=== PATIENT | female | born 1985 | race Caucasian/White ===

== ENCOUNTER 2018-10-26 07:19 | Inpatient (IN) ==
--- NOTE | 2018-10-26 07:50 | PROVIDER DOCUMENTATION ---
HPI-General Adult - General Chief Complaint: Extremity Pain Stated Complaint: LEFT LEG,HIP,FOOT PAIN,SEEING THINGS Time Seen by Provider: 10/26/18 07:31 Allergies/Adverse Reactions: Patient Allergies Allergy/AdvReac Type Severity Reaction Status Date / Time adhesive tape Allergy RASH Verified 03/13/18 21:19 Home Medications: Home Medication List Medication Instructions Recorded Confirmed Last Taken Type Albuterol Sulfate Inhaler 2 puff INH [id number] 04/05/12 10/26/18 11/11/17 History [Ventolin Hfa] Hydrochlorothiazide 12.5 mg PO DAILY 03/13/18 10/26/18 Unknown History Lisinopril 5 mg PO DAILY 03/13/18 10/26/18 Unknown History Citalopram Hydrobromide [Celexa] 1 tab PO DAILY 10/26/18 10/26/18 10/25/18 History Gabapentin 300 mg PO TID 10/26/18 10/26/18 Unknown History - History of Present Illness -Gen Adult Nature of Presenting Problems: 32 y/o WF c/o lt lateral hip pain since 330 this am. She states that she got up this am and noticed her hip was hurting but denies any injuries and was fine when she went to bed. Pt also notes headache and seeing a green ball "coming at her" and adds her chest is hurting. Pt denies any substance abuse but does admit to starting celexa last night. Location of Pain/Injury: reports: head (headache), chest (chest pain), lower extremity (lt hip pain) Pain Radiation: reports: feet (Pt notes that her lt hip pain radiates to lt foot but has no point tenderness.) Quality of Pain: reports: aching Severity: reports: mild Onset/Duration: reports: 4-6 hours ago Timing: reports: still present Context/Activities at Onset: reports: rest Modifying Factors: improves with: movement Associated Symptoms: reports: anxiety Similar Symptoms Previously?: No Recently seen or treated by another doctor?: No - Sickle Cell Pain Related Context Sickle Cell Pain Location: reports: none Is this pain typical of prior episodes of crisis?: No Review of Systems - Adult - REVIEW OF SYSTEMS - ADULT Constitutional: reports: see HPI Eyes: reports: no symptoms reported, see HPI Ears, Nose, Mouth & Throat: reports: no symptoms reported, see HPI Cardiovascular: reports: chest pain Respiratory: reports: no symptoms reported, see HPI Gastrointestinal: reports: no symptoms reported, see HPI Genitourinary: reports: no symptoms reported, see HPI Musculoskeletal: reports: see HPI, joint pain (lt hip pain) Integumentary: reports: no symptoms reported, see HPI Neurological: reports: headache/migraines, other (seeing green ball) Psychiatric: reports: see HPI, anxiety Endocrine: reports: no symptoms reported, see HPI Hematologic/Lymphatic: reports: no symptoms reported, see HPI Allergic/Immunologic: reports: no symptoms reported, see HPI All Other Systems: Reviewed and Negative Past History - Adult - PAST MEDICAL HISTORY-ADULT Review of Records: reports: Nursing Assessment Review, Medications Reviewed, Social history reviewed & non-contributory. Major Childhood Illnesses: reports: history unknown Cardiovascular: reports: HTN Respiratory: reports: asthma, COPD Gastrointestinal: reports: denies history Obstetrical/Gynecological: reports: denies history Genitourinary: reports: denies history Musculoskeletal: reports: chronic pain (back) Neurological: reports: denies history Psychiatric: reports: denies history Endocrine/Immune: reports: Diabetes Other Conditions: reports: denies history - PRIOR SURGERIES/PROCEDURES Surgical/Procedure History: reports: none - PRIOR HOSPITALIZATIONS Prior Hospitalizations: reports: none - IMMUNIZATION STATUS Childhood Immunizations: See Nurse Assessment Flu Vaccine: See Nurse Assessment - FAMILY HISTORY Family History: reviewed, not pertinent Physical Exam-General - PHYSICAL EXAM-ADULT Initial Vital Signs Reviewed: Yes - CONSTITUTIONAL General Appearance: alert, mild distress - EYES Eyes: PERRL/EOMI - HEAD, EARS, NOSE, MOUTH & THROAT HENMT: normocephalic/atraumatic, moist mucous membranes, normal ENT inspection - NECK Neck: non-tender, full range of motion, supple, normal inspection - RESPIRATORY Respiratory: chest non-tender, lungs clear, normal breath sounds, no pleuratic chest pain, no respiratory distress, no accessory muscle use - CARDIOVASCULAR Cardiovascular: normal peripheral pulses, regular rate, rhythm, no edema, no gallop, no JVD, no murmur - GASTROINTESTINAL (ABDOMEN) Abdominal Exam: normal bowel sounds, non tender, soft, no organomegaly, no pulsatile mass - LYMPHATIC Lymphatic: no adenopathy - MUSCULOSKELETAL Back Exam: no CVA tenderness, no vertebral tenderness Extremity: normal range of motion, no pedal edema, no calf tenderness, normal capillary refill, tenderness (to lt lateral hip. No tenderness with palpation or movement to lt lower leg.) Peripheral Pulses: dorsalis-pedis (R): 4+, dorsalis-pedis (L): 4+ - SKIN Integumentary: normal color, normal turgor - NEUROLOGIC Neurologic: party host II-XII nml as tested, grossly normal, no motor/sensory deficits - PSYCHIATRIC Psych/Mental Status: normal thought content, normal thought process, oriented x 3, anxious, tearful Progress - PLAN OF CARE/RESULTS Progress/Plan/Lab Results: Vital Signs - 8 hr 10/26/18 07:21 Temperature 98.2 F Pulse Rate 98 H Respiratory Rate 16 Blood Pressure 134/104 O2 Sat by Pulse Oximetry 98 Orders Category Date Time Status CT HEAD W/O CONTRAST [CT] Stat Exams 10/26/18 07:39 Ordered XRAY PELVIS W/HIP 2-3VW LT [RAD] Stat Exams 10/26/18 07:39 Ordered cxr [CHEST-1 VIEW] [RAD] Stat Exams 10/26/18 07:41 Ordered CBC WITH ELECTRONIC DIFF [HEME] Stat Lab 10/26/18 07:41 Uncollected COMPREHENSIVE METABOLIC PANEL [CHEM] Stat Lab 10/26/18 07:41 Uncollected TEST-URINE [PREG] Stat Lab 10/26/18 07:39 Uncollected TROPONIN T Stat Lab 10/26/18 07:41 Uncollected URINALYSIS [URINALYSIS] Stat Lab 10/26/18 07:41 Uncollected URINE DRUG SCREEN Stat Lab 10/26/18 07:43 Uncollected EKG [EKG] Stat Ther 10/26/18 07:41 Ordered discussed with PA for Dr Mo who agreed to admit and will see in ER. Result Diagrams: 10/26/18 08:19 10/26/18 08:19 Departure - Departure Date of Disposition Decision: 10/26/18 Time of Disposition Decision: 10:59 DIAGNOSIS: Altered mental status, Substance abuse, Chest pain Disposition: ADMITTED INPATIENT 09 Certified Medical Emergency: Emergent Condition: Fair Referrals and Follow-Ups: Maura Zambrano CRNP [Primary Care Provider] - - Critical Care Note This patient required my direct & personal management of CC.: Yes Total Time (mins): 35 Critical Care Statement: This patient required my direct personal management to treat or rule out processes, the absence of which, could potentiallly result in sudden, clinically significant life or limb threatening deterioration. Attestation - Physician/ MICHAEL Attestation Patient care was provided by Advanced Practice Provider:: No The physician spent face to face time with patient:: Yes Advanced Practice Provider documentation review:: Supervising physician onsite and consulted in the evaluation and care of this patient. The physician did have a face to face encounter with the patient.
--- NOTE | 2018-10-26 08:10 | EKG Report ---
Test Performed on : 10/26/2018 08:01:54 AM Test Reason : chest pain Blood Pressure : / mmHG Vent. Rate : 092 BPM Atrial Rate : 092 BPM P-R Int : 080 ms QRS Dur : 098 ms QT Int : 400 ms P-R-T Axes : 019 018 263 degrees QTc Int : 494 ms Sinus rhythm. with short WI ST & T wave abnormality, consider inferior ischemia ST & T wave abnormality, consider anterior ischemia Abnormal ECG When compared with ECG of 30-AUG-2018 10:17, WI interval has decreased Nonspecific T wave abnormality has replaced inverted T waves in Lateral leads Unconfirmed Result
[2018-10-26 08:40] LABS: BASO# 0.02 X1000 (0.0-0.2); BASO% 0.2 % (0.0-0.8); EOS# 0.07 X1000 (0.0-0.7); EOS% 0.7 % (0.0-10.0); HEMATOCRIT 42.2 % (37.0-47.0); HEMOGLOBIN 13.8 g/dL (12.0-16.0); IMM GRAN# 0.02 X1000 (0.0-0.04); IMM GRAN% 0.2 % (0.0-0.5); LYMPH# 2.91 X1000 (1.2-3.4); LYMPH% 30.8 % (20.5-51.1); MCH 27.4 PG (27-31); MCHC 32.7 g/dL (33-37); MCV 83.7 FL (81-99); MONO# 0.51 X1000 (0.11-0.59); MONO% 5.4 % (1.7-9.3); MPV 9.5 FL (7.4-10.4); NEUT# 5.93 X1000 (1.4-6.5); NEUT% 62.7 % (42.2-75.2); PLT 346 X1000 (130-400); RBC 5.04 XMIL (4.2-5.4); RDW 14.3 % (11.5-14.5); WBC 9.46 X1000 (4.8-10.8)
[2018-10-26 08:53] LABS: AGAP 13; ALB/GLOB RATIO 1.2; ALBUMIN 4.1 g/dL (3.5-5.0); ALKALINE PHOSPHATASE 84 U/L (32-104); BUN 7 mg/dL (8-22); CALCIUM 9.5 mg/dL (8.8-10.2); CHLORIDE 101 mmol/L (98-107); COSMO 276; CREATININE 0.9 mg/dL (0.5-0.9); ESTIMATED GFR > 60; GLUCOSE 80 mg/dL (70-104); GOT 16 U/L (10-30); GPT 13 U/L (10-36); POTASSIUM 3.4 mmol/L (3.5-5.1); SODIUM 140 mmol/L (136-145); TCO2 26 mmol/L (25-35); TOTAL BILIRUBIN 0.39 mg/dL (0.20-1.00); TOTAL PROTEIN 7.4 g/dL (6.3-8.3)
[2018-10-26] MEDS ORDERED: ATIVAN IV ONE (09:17)
[2018-10-26 09:36] LABS: URINE SOURCE CLEAN CATCH
[2018-10-26 09:41] LABS: UR EPITHELIAL CELLS <10 /HPF (<10); URINE BACTERIA 1+ /HPF; URINE RBC <10 /HPF (<10); URINE WBC <10 /HPF (<10)
[2018-10-26 09:42] LABS: BILIRUBIN URINE NEGATIVE (NEGATIVE); BLOOD URINE NEGATIVE (NEGATIVE); COLOR YELLOW; GLUCOSE URINE NEGATIVE (NEGATIVE); KETONE URINE 10 mg/dL (NEGATIVE); LEUKOCYTES URINE NEGATIVE (NEGATIVE); NITRITE URINE NEGATIVE (NEGATIVE); PH URINE 6.5; PROTEIN URINE TRACE mg/dL (NEGATIVE); SP GRAVITY URINE 1.014; TURBIDITY URINE CLEAR (CLEAR); UROBILINOGEN URINE NORMAL (NORMAL)
[2018-10-26 10:05] LABS: UR AMPHETAMINES QUAL PRESUMPTIVE POSITIVE (NONE DETECT); UR BARBITUATES QUAL NONE DETECTED (NONE DETECT); UR BENZODIAZEPIN QUAL NONE DETECTED (NONE DETECT); UR CANNABINOIDS QUAL NONE DETECTED (NONE DETECT); UR COCAINE QUAL NONE DETECTED (NONE DETECT); UR METHADONE QUAL NONE DETECTED (NONE DETECT); UR OPIATES QUAL NONE DETECTED (NONE DETECT); UR OXYCODONE QUAL NONE DETECTED (NONE DETECT); UR PCP QUAL NONE DETECTED (NONE DETECT)
--- NOTE | 2018-10-26 10:15 | ED EKG INTERP ---
This chart was entered by Mindy Worrell Scribe, acting as scribe for Parminder Vera MD. EKG Interpretation - EKG Time of EKG reading by physician:: 08:01 EKG Read and Signed by:: Parminder Vera EKG Interpretation (*Must complete 3 of following elements*): Abnormal Rate: 92 Rhythm: sinus rhythm with short pr [place]: normal QRS: normal WI Interval: normal Comments: st and T wave abnormality, consider inferior or anterior ischemia Attestation - Physician/ MICHAEL Attestation Patient care was provided by Advanced Practice Provider:: No The physician spent face to face time with patient:: Yes Advanced Practice Provider documentation review:: Supervising physician onsite and consulted in the evaluation and care of this patient. The physician did have a face to face encounter with the patient. This chart was documented by the indicated scribe, (Mindy Worrell Scribe) and accurately reflects the services I performed and decisions made by me, Parminder Vera MD, as attested by the provider's signature.
--- NOTE | 2018-10-26 10:33 | Diag Imaging Result Doc PS360 ---
EXAM: CHEST-1 VIEW HISTORY: chest pain TECHNIQUE: Chest single view COMPARISON: 08/30/2018 FINDINGS: The lungs are well expanded. The heart is not enlarged. The vessels are not distended. There are no infiltrates. No effusion identified. Mild scoliosis. IMPRESSION: No acute abnormality. Electronically signed by Andrew Martínez 10/26/2018 10:31 AM
--- NOTE | 2018-10-26 10:36 | Diag Imaging Result Doc PS360 ---
EXAM: XRAY PELVIS W/HIP 2-3VW LT HISTORY: fall, injury TECHNIQUE: Pelvis and left hip, three views COMPARISON: None. FINDINGS: No fracture. No dislocation. IMPRESSION: No acute bony injury. Electronically signed by Andrew Martínez 10/26/2018 10:34 AM
--- NOTE | 2018-10-26 10:50 | Diag Imaging Result Doc PS360 ---
EXAM: CT HEAD W/O CONTRAST HISTORY: headache, seeing things TECHNIQUE: CT head without contrast COMPARISON: 08/02/2013 FINDINGS: No parenchymal hemorrhage. No epidural or subdural hematoma. No subarachnoid hemorrhage. No mass identified on this noncontrasted exam. No hydrocephalus. No sinus opacification. IMPRESSION: No hemorrhage. Negative brain CT without contrast. This exam was performed using automated exposure control, adjustment of mA or kV according to patient size, and/or use of iterative reconstruction technique. Electronically signed by Andrew Martínez 10/26/2018 10:47 AM
[2018-10-26] MEDS ORDERED: ZOFRAN IV PRN (12:25)
[2018-10-26] MEDS ORDERED: NEURONTIN PO SCH (13:00)
[2018-10-26] MEDS ORDERED: ATIVAN IV PRN (13:38)
[2018-10-26] MEDS ORDERED: TYLENOL PO PRN (13:40)
--- NOTE | 2018-10-26 14:20 | HISTORY AND PHYSICAL ---
PRIMARY CARE PHYSICIAN: JAMAR Quinones DATE OF ADMISSION: 10/26/2018 CHIEF COMPLAINT: Leg numbness and hallucinations. HISTORY OF PRESENT ILLNESS: Ms. García is a 32-year-old female with a past medical history of hypertension, asthma, neuropathy, and depression who presented to the emergency department today after complaints that at about 3:30 this morning she woke up and stated she could not move her left leg from the hip on down and that it hurt. She then stated that her foot, and went numb and then the rest of her leg was numb. She started to feel dizzy and then started to see a green ball that was being thrown at her and fish swimming in the area around her. She states that at that point, she tried to wake up her boyfriend, and he wouldn't wake up so she stayed home for a little while and then came into the emergency room after calling her mom. She denies any thoughts of hurting self or others. She denies any prior episodes like this. She denies any known psychiatric disorders except depression. She did state that she started Celexa and took her first dose last night. Her urine drug screen was positive for methamphetamine for which she did admit to using although she states that she has not used this drug for about a month, although she is consistently around people that are using it. She denies any chest pain, shortness of breath, abdominal pain, nausea, vomiting, constipation, or diarrhea. Patient denies any known fall or accident that might have caused the pain in her leg. She does state that she has chronic neuropathy for which she takes gabapentin. She is unsure of why she has neuropathy. She will be admitted for further workup and evaluation. PAST MEDICAL HISTORY: 1. Hypertension. 2. Asthma. 3. Depression. 4. Neuropathy. PAST SURGICAL HISTORY: No surgeries. SOCIAL HISTORY: She denies any tobacco or alcohol use. She does smoke methamphetamine. She lives at home with her boyfriend. 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 FAMILY HISTORY: Heart disease in both parents and lung cancer in both parents. REVIEW OF SYSTEMS: Fourteen point review of systems was completed, and negative except for those mentioned in the HPI. Her current symptoms include numbness to the left leg. She states she is still seeing fish floating around her. She denies any headache, blurred vision, or loss of coordination. She denies any other hallucinations, and she denies any voices. She denies chest pain or shortness of breath. HOME MEDICATIONS: 1. Celexa 20 mg 1 tab p.o. daily. 2. Albuterol inhaler 2 puffs inhaled 4 times a day as needed for shortness of breath. 3. Gabapentin 300 mg p.o. t.i.d. 4. Hydrochlorothiazide 12.5 mg p.o. daily. 5. Lisinopril 5 mg p.o. daily. ALLERGIES: No known drug allergies. Adhesive tape. PHYSICAL EXAMINATION: VITAL SIGNS: Temperature 98.2 degrees, heart rate 87, respiratory rate 17, blood pressure 143/68, O2 saturation 100% on room air. GENERAL: This is a 32-year-old female. She is in no acute distress. She is sitting in bed. She answers questions appropriately. NEUROLOGIC: She is alert and oriented. She is without focal deficits. Upper extremity strength equal bilaterally. Lower extremity strength decreased on the left side. There is no facial asymmetry or drooping. Cranial nerves 2-12 were grossly intact. She could complete rapid alternating movement, and she could do [id number]. The patient is unable to feel light and sharp palpation of the left extremity from hip to bottom of foot. HEENT: Her head is atraumatic, normocephalic. Her pupils are equal, round, and reactive to light. Oral mucosa is mildly dry. NECK: Her trachea is midline. There is no JVD. CHEST: Her lung sounds were clear bilaterally. CARDIOVASCULAR: Her rate and rhythm are regular. S1, S2 is noted. ABDOMEN: Soft and nontender. Bowel sounds are positive. EXTREMITIES: There is no edema. Capillary refill is brisk. Pedal pulses are 2+. SKIN: Warm, dry, and intact. LABORATORY: WBC 9.4, hemoglobin 13.8, hematocrit 42.2, and platelets 346,000. D-dimer 0.27. Sodium 140, potassium 3.4, BUN 7, creatinine 0.9. Liver enzymes normal. Troponin negative less than 0.01. Urine with trace protein. Urine toxicology positive for amphetamines. Glucose 80. IMAGING: Head CT reveals no hemorrhage. Negative brain CT without contrast. X-ray of the hip and pelvis on the left side. No fracture. No dislocation. No acute bony injury. Chest x-ray reveals no acute abnormality. EKG reveals sinus rhythm with short MN interval. ASSESSMENT AND PLAN: 1. Acute encephalopathy with hallucinations and paresthesias of the left leg, some potentially related to substance abuse with use of methamphetamine. The patient seems to relate these symptoms to her 1st dose of Celexa, which was last night. We will rule out other potential causes including infectious causes or metabolic etiologies including B12, thyroid. All scans so far have been negative and she does have chronic neuropathy. She has never had a significant neck or back injury or surgery. She does not complain of any neck or back pain. This is perhaps again toxic encephalopathy secondary to her substance abuse or psychiatric etiology. We will do further labs and monitor as well as provide some IV fluids. She does appear a bit volume depleted. Perhaps need a neurology or psychiatry consult. We will hold her Celexa for now. She denies any threat to herself or others. We will also put in a social service consult for discharge planning purposes and substance abuse education. 2. Hypertension. We can continue her home medications. 3. Asthma. She is not in exacerbation. She does have an albuterol inhaler that she uses occasionally. 4. Depression. Again, we will hold her Celexa for now secondary to these recent symptoms. See #1. 5. Neuropathy. We will continue her gabapentin, see #1. 6. Deep venous thrombosis prophylaxis. Lovenox. ion. 7. Substance abuse disorder. We will provide substance abuse education daily. Dictated by JAMAR Chowdhury for Reginald Mccann MD cc: MD Maura Nelson CRNP
[2018-10-26] MEDS: LOVENOX SUBQ SCH (14:31)
[2018-10-26] MEDS: NS 1,000 ML IV SCH (14:32)
[2018-10-26] MEDS: VENTOLIN HFA INH SCH ×2 (15:00→22:00)
--- NOTE | 2018-10-26 19:18 | Diag Imaging Result Doc PS360 ---
EXAM: KNEE 1-2 VIEWS-LEFT 10/26/2018 HISTORY: left knee trauma / pain TECHNIQUE: Left knee two views COMMENT: There is no evidence of fracture or dislocation. There is a sclerotic lesion in the proximal shaft of the tibia which has not changed since 08/18/2018. There may be a small amount of suprapatellar effusion. IMPRESSION: No evidence of acute bony disease. Electronically signed by Chino Lopez 10/26/2018 7:16 PM
[2018-10-27] MEDS: NEURONTIN PO SCH ×2 (00:32→10:18)
[2018-10-27] MEDS ORDERED: PNEUMOVAX 23 IM ONE (01:04)
[2018-10-27] MEDS: VENTOLIN HFA INH SCH ×2 (03:12→07:40)
[2018-10-27] MEDS: NS 1,000 ML IV SCH ×2 (05:41→10:16)
[2018-10-27 07:06] LABS: BASO# 0.02 X1000 (0.0-0.2); BASO% 0.2 % (0.0-0.8); EOS# 0.11 X1000 (0.0-0.7); EOS% 1.3 % (0.0-10.0); HEMATOCRIT 40.3 % (37.0-47.0); HEMOGLOBIN 13.2 g/dL (12.0-16.0); IMM GRAN# 0.02 X1000 (0.0-0.04); IMM GRAN% 0.2 % (0.0-0.5); LYMPH# 2.47 X1000 (1.2-3.4); LYMPH% 28.6 % (20.5-51.1); MCH 27.7 PG (27-31); MCHC 32.8 g/dL (33-37); MCV 84.5 FL (81-99); MONO# 0.59 X1000 (0.11-0.59); MONO% 6.8 % (1.7-9.3); MPV 9.6 FL (7.4-10.4); NEUT# 5.43 X1000 (1.4-6.5); NEUT% 62.9 % (42.2-75.2); PLT 329 X1000 (130-400); RBC 4.77 XMIL (4.2-5.4); RDW 14.6 % (11.5-14.5); WBC 8.64 X1000 (4.8-10.8)
[2018-10-27 07:17] LABS: HEMOGLOBIN A1C 5.1 % (4.8-6.0)
[2018-10-27 07:37] LABS: AGAP 11; ALB/GLOB RATIO 1.1; ALBUMIN 3.5 g/dL (3.5-5.0); ALKALINE PHOSPHATASE 75 U/L (32-104); BUN 9 mg/dL (8-22); CALCIUM 8.5 mg/dL (8.8-10.2); CHLORIDE 109 mmol/L (98-107); COSMO 285; CREATININE 0.8 mg/dL (0.5-0.9); ESTIMATED GFR > 60; GLUCOSE 91 mg/dL (70-104); GOT 13 U/L (10-30); GPT 11 U/L (10-36); POTASSIUM 3.4 mmol/L (3.5-5.1); SODIUM 144 mmol/L (136-145); TCO2 24 mmol/L (25-35); TOTAL BILIRUBIN 0.28 mg/dL (0.20-1.00); TOTAL PROTEIN 6.8 g/dL (6.3-8.3)
[2018-10-27] MEDS ORDERED: HYDROCHLOROTHIAZIDE PO SCH (09:00)
[2018-10-27] MEDS ORDERED: PRINIVIL PO SCH (09:00)
[2018-10-27] MEDS ORDERED: KLOR-CON PO ONE (10:00)
[2018-10-27 11:54] VITALS: BP 130/88
[2018-10-27] MEDS: LOVENOX SUBQ SCH (12:21)
--- NOTE | 2018-10-28 12:02 | DISCHARGE SUMMARY ---
ADMISSION DATE: 10/26/2018 DISCHARGE DATE: 10/27/2018 DISCHARGE DIAGNOSES: 1. Acute encephalopathy with hallucinations. 2. Hypertension. 3. History of asthma. 4. History of depression. 5. History of neuropathy. 6. Possible substance abuse disorder with a urine toxicology that showed amphetamines. DISCHARGE MEDICATIONS: Lisinopril 5 mg p.o. daily, hydrochlorothiazide 12.5 mg p.o. daily, albuterol 2 puff inhaler 4 times a day as needed, and gabapentin 300 mg p.o. t.i.d., basically her home medications. HOSPITAL COURSE: The patient is a 32-year-old female with a past medical history hypertension, asthma, neuropathy and depression, presented to the emergency department and was admitted on 11/05/2018. She started complaining of left leg pain at the level of the knee and hip, and also she described some kind of numbness sensation in that lower extremity, that happened around 3:30 a.m.. She started to feel dizzy and she started hallucinating. She denied any thoughts of hurting herself or others. She denied any episodes like these. She denies any known psychiatric disorders except for depression. As per the patient these problems started the same night that she started taking Celexa. Urine drug screen was positive for amphetamines, but the patient denies any use of recreational drugs at this moment. Apparently she used some drugs, but like a month ago or so. She denied any chest pain, shortness of breath, abdominal pain, nausea, vomiting, constipation or diarrhea. Upon admission she denied any known fall or accident that might have caused the pain of her leg, but when we re-evaluated this patient later yesterday in the afternoon she stated that her knee pain likely was related to a fall, so we did an x-ray of that knee that was negative for acute pathology or abnormality. We put this patient on IV fluids. We will continue with some of her home medications and of course we stopped the Celexa and we advised the patient not to take more of that medication or any other recreational drug. Today this patient is completely back to her baseline, alert and oriented x3, she is not having hallucinations. The fiancee is at the bedside. I told her that her urine screen for was negative and she states that a couple of months ago she was told by one doctor that she was , so I recommended to do a new screen through her blood to corroborate this information. She seems to be doing good today, I will send her home with her home medications except for Celexa. PHYSICAL EXAMINATION: Vital Signs: Temperature 98 degrees, pulse 91, respiratory rate 20, blood pressure 130/88, oxygen saturation 100% on room air. HEENT: Head is normocephalic and atraumatic. PERRLA. Neck: Supple. No JVD. No masses. Central trachea. Chest: Clear to auscultation. No wheezing. No rales. Abdomen: Soft, nontender, nondistended. No hepatosplenomegaly. Extremities: No edema, no clubbing, no cyanosis. Knee pain upon palpation and mobilization. Neurologic: The patient is alert and oriented x3. No focal deficits. LABORATORY DATA: WBC 8.6, hemoglobin 13.2, hematocrit 40.3, platelets 329,000. Sodium 144, potassium 3.4, chloride 109, bicarbonate 24, BUN 9, creatinine 0.8, glucose 91, calcium 8.5, albumin 3.5. ASSESSMENT AND PLAN: 1. Follow-Up. Follow by her primary care doctorr. She will need to repeat a blood test. 2. I really had a conversation with this patient about drug use. I told her to avoid living around people doing that as well. TIME SPENT: Time spend discharging this patient was 35 minutes. cc: Reginald Mccann MD
== END 2018-10-27 13:40 | disposition home or self-care (01) | DRG 917 ==
LOC: ED 07:19 → EDIPHOLD 11:46 → 4N 23:01
PROVIDERS: ATTEND Internal Medicine
CPT/HCPCS: 70450; 71010; 71045; 73502; 73560; 80053; 80101; 80301; 80307; 80324; 80345; 80346; 80353; 80358; 80361; 80365; 81001; 81025; 82607; 83036; 83735; 83992; 84443; 84484; 85025; 85379; 90732; 93005; 94640; 94761; 96372; 96374; 96375; 99285; A9270; G0431; G0434; G0479; G0480; J1650; J2060; J2405; J7030